=== PATIENT | male | born 1985 | race African-American/Black ===

== ENCOUNTER 2017-05-14 08:51 | Emergency (ER) | payer OTHER ==
[2017-05-14 09:04] LABS: POC GLUCOSE 281 mg/dL (70-99)
[2017-05-14] MEDS: LIDOCAINE WITH 8.4% SOD BICARB 3 ML DISP.SYRIN. INJ (09:15)
== END 2017-05-14 10:00 | disposition home or self-care (01) ==
LOC: ER 10:00
DX: L02.214 Cutaneous abscess of groin (principal); E11.9 Type 2 diabetes mellitus without complications; I10 Essential (primary) hypertension; Z76.0 Encounter for issue of repeat prescription; Z88.0 Allergy status to penicillin; Z79.4 Long term (current) use of insulin
CPT/HCPCS: 10060; 82962; 99283